=== PATIENT | female | born 1960 | race Two or more races ===

== ENCOUNTER 2022-08-03 10:45 | Inpatient (IN) | payer OTHER ==
[~2022-08-03] VITALS: Ht 149.9 cm; Wt 88.0 kg
[2022-08-03] MEDS ORDERED: BAYER THERAPY325 MG PO (12:06)
[2022-08-03] MEDS ORDERED: ZESTRIL20 MG PO (12:06)
[2022-08-03] MEDS ORDERED: GLUMETZA500 MG PO (12:06)
[2022-08-03] MEDS ORDERED: LIPITOR20 MG PO (12:07)
[2022-08-12] MEDS ORDERED: HYOSCYAMINE0.125 M1 SL (11:07)
[2022-08-12] MEDS ORDERED: AMOX1TAB5 PO (11:07)
[2022-08-12] MEDS ORDERED: PEPCID AC20 MG PO (11:08)
[2022-08-12] MEDS ORDERED: FLUCONAZOLE150 MG PO (11:08)
== END 2022-08-12 12:25 | disposition home or self-care (01) | DRG 329 ==
LOC: O/R 08-08 06:00 → SURH 08-08 10:45
PROVIDERS: ADMIT Surgery; ATTEND Surgery
PROC: 0DTE4ZZ Resection of Large Intestine, Percutaneous Endoscopic Approach (ICD-10-PCS; principal; 2022-08-08 14:00)
DX: K57.20 Diverticulitis of large intestine with perforation and abscess without bleeding (principal); K65.1 Peritoneal abscess; Z20.822 Contact with and (suspected) exposure to COVID-19